=== PATIENT | male | born 1940 ===

== ENCOUNTER → 2019-08-02 | Outpatient (CLI) | payer OTHER ==
[~2019-08-02] VITALS: Ht 167.6 cm; Wt 112.9 kg
[~2019-08-02] MED LIST: ALLOPURINOL 10100 M3 PO; AMLODIPINE BESY10 MG PO; CARDURA8 MG PO; CARVEDILOL25 MG PO; FUROSEMIDE 20 M20 MG PO; GLIPIZIDE 10 MG10 MG PO; NEURONTIN300 MG PO; PRAVACHOL 20 MG20 M1 PO; TAMSULOSIN HCL0.4 MG PO; TYLENOL EXTRA500 MG PO; VALSARTAN320 MG PO; VICTOZA0.6 MG/0.1 SUBQ; VITAMIN D2000 UNIT PO; [UNRECOGNIZED DRUG - OTHER]
[2019-08-02 09:10] VITALS: BP 131/69
--- NOTE | 2019-08-02 09:35 | NUR ---
Pain Clinic Assessment: 1. History of Osteoarthritis: DENIES History of Rheumatoid Arthritis: DENIES 2. Height: 5 ft. 6 in. 167.6 cm. Weight: 249.0 lb. oz. 112.946 kg. Patient's BMI: 40.2 3. Vital Signs: BP: 131/69 Pulse: 73 Resp: 18 Temp: 02 Sat: 97 ECG Mon: 4. Pain Intensity: 5 5. Fall Risk: Dizziness: N Needs help standing or walking: N Fallen in the last 3 months: N Fall risk comments: 6. Patient on Blood Thinner: None 7. History of Hypertension: Y 8. Opioid Therapy greater than 6 weeks: N Opiate Contract Signed: 9. Risk Assessment Tool Provided: 10. Functional Assessment Tool: 11. Recreational Drug Use: Never Drug Type: Tobacco Use: Never Smoker Tobacco Type: Amount or Packs/day: How Many Years: Alcohol Use: No Frequency: Quant:
--- NOTE | 2019-08-23 08:14 | HPC ---
[facility] [address] [place] [address] PAIN MANAGEMENT CONSULTATION Name: ELIZABETH SANTIAGO Room #: REG ABBY Roe#: [id number] Admission: 08/02/19 Attend Phys: Kristin Santana MD Discharge: Date of : 42 Report #: [id number] THIS REPORT FOR: //name// CC: Irene Santana DATE OF SERVICE: 08/02/2019 CHIEF COMPLAINT: Low back pain and spinal stenosis with pain down in the back. HISTORY: The patient is a 79-year-old gentleman who has been referred to the Pain Clinic for evaluation. He has been referred to the Pain Clinic because of pain and discomfort, which has been problematic since about 2013. He has had some pain down in his lower back. Notes that the pain is worse when he is walking. Pain improves when he sits. Describes it as steady discomfort, burning and rates it as a 3/10 today, can rise to the level of 5/10. The patient has noted some signs of increased pain with walking. He is able to walk 2-3 blocks. After walking 2-3 blocks, he must lean forward. After leaning forward, he notices that the pain and discomfort in the low back area starts to dissipate relatively quickly. After sitting for about 5 minutes, he is able to then resume his activity. When he goes shopping, he holds onto the cart and leans forward. Again, he is limited in his ability to walk distances because of this pain and discomfort. He has had epidural steroid injections at [facility] lasted about 2014. ALLERGIES: IODINE causes edema and swelling. CURRENT MEDICATIONS: Pravastatin 10 mg at bedtime, amlodipine 10 mg daily, doxazosin 8 mg 2 tablets, carvedilol 25 mg b.i.d., gabapentin 300 mg t.i.d., Lotrisone cream to affected area b.i.d., valsartan 80 mg, allopurinol 100 mg, vitamin D 2000 units, Lasix 40 mg, Flomax 0.4 mg, Victoza, Flexeril 5 mg t.i.d., and glimepiride 4 mg. PAST MEDICAL HISTORY: Diabetes, hypertension, hyperlipidemia, chronic kidney disease, gout, arthritis, and rotator cuff disease. PAST SURGICAL HISTORY: Rotator cuff, penile implant, cataract surgery, left and right in August 2012, carpal tunnel release, left wrist, 09/2015, umbilical hernia repair 2016. C3/C6 laminectomy in 04/15/2019. REVIEW OF SYSTEMS: Questionnaire fatigue and weakness, wears glasses, hearing loss, shortness of breath, sexual difficulties, numbness and tingling and diabetes. LABORATORY DATA: MRI of the lumbar spine dated 03/10/2015: 1. Mild degenerative loss of disk height. Broad-based moderate sized stable [address] [address] PAIN MANAGEMENT CONSULTATION Name: ELIZABETH SANTIAGO [id number] Admission: 08/02/19 Attend Phys: Kristin Santana MD Discharge: Date of : 41 Report #: [id number] disk protrusion redemonstrated including central and inferiorly directed small extrusion. Ligamentum flavum thickening is also present. The lateral recesses are partially effaced and both foramen are mildly narrowed. 2. L3-L4 severe degenerative disk space narrowing has advanced. Large diffuse posterior disk bulge is also more advanced. Prominent dorsal epidural fat noted. Thecal sac midline AP diameter, 4 mm. 3. L2-L3 diffuse posterior disk bulge and prominent dorsal epidural fat redemonstrated. AP diameter approximately 9 mm. 4. L4-L5 moderate degenerative loss of disk height and small diffuse posterior disk bulge. Thecal sac AP diameter approximately 6 mm. Lateral recesses are partially effaced with ligamentum flavum. 5. L5-S1 moderate to severe degenerative loss of disk height with moderate size circumferential disk bulge. AP diameter is approximately 8-9 mm. PAIN CLINIC ASSESSMENT/PQRS: 1. History of osteoarthritis, has cervical osteoarthritic changes, status post cervical laminectomy. 2. History of rheumatoid arthritis. The patient is not being treated for rheumatoid arthritis. 3. Height 5 feet 6 inches, weight 249 pounds, BMI is 40. 4. Vital signs: Blood pressure 131/69, pulse 73, respiratory rate 18, and room air saturation 97%. 5. Pain intensity, 5/10. 6. Fall history: The patient has not fallen in the last 3 months. 7. Blood thinner. The patient is not on a blood thinning medication. 8. Hypertension. The patient is being treated for hypertension. 9. Opioids greater than 6 weeks. The patient is not on opioid regimen. 10. Risk assessment tool, low for opioid use. 11. Functional assessment tool. 12. Recreational drug use. The patient denies. 13. Tobacco: The patient has never smoked. 14. Alcohol. The patient denies use of alcoholic beverages. PHYSICAL EXAMINATION: GENERAL: The patient is a well-developed, well-nourished black male, appears his stated age. He is alert and oriented x 3. His affect is appropriate. Speech is fluent. HEENT: Normocephalic, atraumatic. Extraocular eye muscles intact. The patient has a well-healed scar in the anterior portion of his neck. He has some decreased range of motion in his neck. Upper extremity muscle strength is judged to be 5-/5 for the major muscle groups in the upper extremity. HEART: Regular rate. ABDOMEN: Protuberant. Bowel sounds present. LUNGS: Generally clear to auscultation. MUSCULOSKELETAL: The patient has pain and discomfort in the lower portion of his back with pain that radiates down into his legs with prolonged standing. [facility] [address] [place] [address] PAIN MANAGEMENT CONSULTATION Name: ELIZABETH SANTIAGO Room #: REG [facility]#: [id number] Admission: 08/02/19 Attend Phys: Kristin Santana MD Discharge: Date of : 41 Report #: [id number] The patient is without significant scoliosis, kyphosis or lordosis. Complains of pain that radiates down in the L4-L5 dermatomal distribution. IMPRESSION: Lumbar radiculopathy, L4-L5 dermatomal distribution with history of spinal stenosis. RECOMMENDATIONS: We discussed treatment options with the patient. Risks and benefits of an epidural steroid injection were discussed. Possible complications of the procedure, which could include but are not limited to infection, worsening pain, no improvement in pain, bleeding, nerve damage and the patient elects to proceed. PROCEDURE NOTE: The patient was taken to the procedure area. He was then assisted in getting on the examination table. His back was sterilely prepped with a Betadine solution at the L4-L5 area. Fluoroscopy using anterior, posterior as well as lateral viewing were implemented. A pillow had been placed under the abdomen to bolster to improve positioning. A 0.25% bupivacaine was infiltrated at the L4-L5 area. This area had been sterilely prepped with a Betadine solution and allowed to dry. A total of 80 mg Depo-Medrol, 40 mg triamcinolone and 2 mL of 0.25% bupivacaine was injected after the 18-gauge Tuohy was advanced into the area of the epidural space. Aspiration was negative. There was no CSF, heme or paresthesia. The patient receives 22 seconds of fluoroscopy time. The patient's pain decreased to zero at the time of discharge. He will follow up in the future as needed. We would like to thank you for letting us participate in his care. We hope he continues to improve. <ELECTRONICALLY SIGNED> By: Kristin Santana MD 08/23/19 0814 [id number] Kristin Santana MD /renée
== END | disposition home or self-care (01) ==
LOC: PAIN 06:54
DX: M54.16 Radiculopathy, lumbar region (principal); G89.29 Other chronic pain; I12.9 Hypertensive chronic kidney disease with stage 1 through stage 4 chronic kidney disease, or unspecified chronic kidney disease; E11.22 Type 2 diabetes mellitus with diabetic chronic kidney disease; N18.9 Chronic kidney disease, unspecified; E78.5 Hyperlipidemia, unspecified; M10.9 Gout, unspecified; M19.90 Unspecified osteoarthritis, unspecified site; Z98.890 Other specified postprocedural states; Z79.899 Other long term (current) drug therapy; Z91.041 Radiographic dye allergy status

== ENCOUNTER → 2019-09-04 | Outpatient (CLI) | payer OTHER ==
[~2019-09-04] VITALS: Ht 167.6 cm; Wt 114.2 kg
[2019-09-04 10:02] VITALS: BP 148/81
--- NOTE | 2019-09-04 10:26 | NUR ---
Pain Clinic Assessment: 1. History of Osteoarthritis: LEFT SHOULDER SPINE History of Rheumatoid Arthritis: DENIES 2. Height: 5 ft. 6 in. 167.6 cm. Weight: 251.8 lb. oz. 114.216 kg. Patient's BMI: 40.7 3. Vital Signs: BP: 148/81 Pulse: 76 Resp: 20 Temp: 02 Sat: 97 ECG Mon: 4. Pain Intensity: 8 5. Fall Risk: Dizziness: N Needs help standing or walking: N Fallen in the last 3 months: N Fall risk comments: 6. Patient on Blood Thinner: None 7. History of Hypertension: Y 8. Opioid Therapy greater than 6 weeks: N Opiate Contract Signed: 9. Risk Assessment Tool Provided: 10. Functional Assessment Tool: 11. Recreational Drug Use: Never Drug Type: Tobacco Use: Never Smoker Tobacco Type: Amount or Packs/day: How Many Years: Alcohol Use: No Frequency: Quant:
--- NOTE | 2019-09-24 21:49 | HPC ---
[facility] [address] [place] [address] PAIN MANAGEMENT CONSULTATION Name: ELIZABETH SANTIAGO Room #: REG LEOPOLDOMarlena Au#: [id number] Admission: 09/04/19 Attend Phys: Kristin Santana MD Discharge: Date of : 41 Report #: [id number] THIS REPORT FOR: //name// CC: Irene Santana DATE OF SERVICE: 09/04/2019 CHIEF COMPLAINT: Low back pain and pain in the tailbone. HISTORY: The patient is a 79-year-old gentleman who has been seen in the pain clinic because of lumbar radicular pain. He has undergone epidural steroid injection. He has had some pain since 2013. Notes that pain radiates down the lower portion of his back. Notes that the pain is problematic when he walks. Pain improves when he sits. He was walking 2-3 blocks. Notes at this point, he is having more pain and discomfort. Notes that if he leans forward, he has less pain and discomfort. After sitting for about 5 minutes, he notices pain improved. Notes leaning forward on a cart when walking and shopping is helpful. Epidural steroid injections at [facility] in the past have been beneficial. He has undergone epidural steroid injection and returns today indicating that his pain was helped. He still has pain, which he rates as an 8/10. Pain improves when he is sitting. CURRENT MEDICATIONS: Pravastatin 10 mg at bedtime, amlodipine 10 mg daily, doxazosin 8 mg, 2 tablets, carvedilol 25 mg b.i.d., gabapentin 300 mg t.i.d., Lotrisone cream to affected area b.i.d., valsartan 80 mg, allopurinol 100 mg, vitamin D 2000 units, Lasix 40 mg, Flomax 0.4 mg, Victoza, Flexeril 5 mg t.i.d., and glyburide 4 mg. PAIN CLINIC ASSESSMENT AND PQRS: 1. History of osteoarthritis involving his left shoulder as well as his spine. He is not being treated for rheumatoid arthritis. 2. Height 5 feet 6 inches, weight 251 pounds, BMI is 40.7. 3. Blood pressure 148/81, pulse 76, respiratory rate 20, room air saturation 97%. 4. Pain intensity 05/25. 5. Fall risk. The patient has not fallen. 6. Blood thinner. The patient is not on a blood thinner. 7. Hypertension. The patient is being treated for hypertension. 8. Opioids greater than 6 weeks. The patient receives medication from one source. 9. Risk assessment tool, low for opioid use. 10. Functional assessment tool. 11. Recreational drug use: The patient denies. 12. Tobacco: The patient has never smoked. 13. Alcohol: The patient denies frequent use of alcoholic beverages. [address] [address] PAIN MANAGEMENT CONSULTATION Name: ELIZABETH SANTIAGO Room #: REG [facility]#: [id number] Admission: 09/04/19 Attend Phys: Kristin Santana MD Discharge: Date of : 41 Report #: [id number] IMPRESSION: Lumbar radiculopathy with L4-L5 dermatomal distribution with history of spinal stenosis. RECOMMENDATIONS: We discussed treatment options with the patient. Risks and benefits of an epidural steroid injection were discussed. They include but are not limited to infection, worsening pain, no improvement in pain and the patient elects to proceed. PROCEDURE NOTE: The patient was taken to the procedure area. He was then assisted in getting on the examination table. His back was sterilely prepped with a Betadine solution at L4-L5. Fluoroscopy using anterior, posterior as well as lateral viewing were implemented. A pillow was placed under the abdomen to bolster and improve positioning. A 0.25% bupivacaine was infiltrated at the L4-L5 area to numb the area. This area had been sterilely prepped with Betadine. A 0.25% bupivacaine was injected. A 17-gauge Tuohy with loss of resistance technique was used to gain access to the epidural space. There was no CSF, heme or paresthesia. Total of 80 mg Depo-Medrol, 40 mg triamcinolone and 2 mL of 0.25% bupivacaine was injected. The patient's pain decreased to 0 at the time of discharge. He will follow up in the future as needed. The epidural was performed at the L5/S1 dermatomal interspace. Total of 11 seconds fluoroscopy time was used. The patient's pain decreased to 0. We would like to thank you for letting us participate in his care. We hope he continues to improve. <ELECTRONICALLY SIGNED> By: Kristin Santana MD 09/24/19 2149 [id number] Kristin Santana MD /renée
== END | disposition home or self-care (01) ==
LOC: PAIN 07:03
DX: M54.16 Radiculopathy, lumbar region (principal); G89.29 Other chronic pain; I12.9 Hypertensive chronic kidney disease with stage 1 through stage 4 chronic kidney disease, or unspecified chronic kidney disease; E11.22 Type 2 diabetes mellitus with diabetic chronic kidney disease; N18.9 Chronic kidney disease, unspecified; E78.5 Hyperlipidemia, unspecified; Z98.890 Other specified postprocedural states; Z79.899 Other long term (current) drug therapy; Z91.041 Radiographic dye allergy status

== ENCOUNTER → 2019-12-25 | Outpatient (CLI) | payer OTHER ==
[~2019-12-25] VITALS: Ht 167.6 cm; Wt 117.3 kg
--- NOTE | ~2019-12-25 | HPC ---
[facility] [place] [address] PAIN MANAGEMENT CONSULTATION Name: ELIZABETH SANTIAGO Room #: REG ABBY MoranOlesyaAjay.#: [id number] Admission: 12/25/19 Attend Phys: Kristin Santana MD Discharge: Date of : 41 Report #: [id number] THIS REPORT FOR: cc: Irene Zambrano MD,Irene Santana,Kristin Burger MD ~ CC: Irene Santana DATE OF SERVICE: 12/25/2019 CHIEF COMPLAINT: Return of pain down into both legs. HISTORY: The patient is a 79-year-old gentleman who has been seen in the pain clinic because of lumbar radiculopathy. He has undergone epidural steroid injections in the past. He did glean benefit from that injection. He returns today indicating that he is having some recurrence of pain in the low back area that radiates down into both legs and into his buttocks and down into his calf. Notes that the left and the right leg are involved. Describes it as a constant, aching discomfort intensifies with walking, improves when he sits down and rates it as an 8/10. Because of the improvement he received after the last injection in 08/2019, he has returned for an injection today. ALLERGIES: IODINE ____ use does not cause problems, it is IV IODINE. MEDICATIONS: Finerenone experimental nonsteroidal for diabetics with kidney disease. Tylenol Extra Strength b.i.d., vitamin D 2000 units, liraglutide (Victoza) subcutaneous daily, valsartan 320 mg, Flomax 0.4 mg, Pravachol 20 mg, Glucotrol 10 mg, gabapentin 300 mg t.i.d., Lasix 20 mg, Cardura 8 mg, Coreg 25 mg, amlodipine 10 mg, allopurinol 100 mg b.i.d. PAIN CLINIC ASSESSMENT AND PQRS: 1. The patient has a history of osteoarthritis involving his left shoulder as well as in his spine. He is not being treated for rheumatoid arthritis. 2. Height 5 feet 6 inches, weight 258 pounds, BMI is 41. 3. Vital signs: Blood pressure 145/82, pulse 82, respiratory rate 16, room air saturation 95%. 4. Pain intensity 05/25. 5. Fall history: The patient fell in the parking lot. He states that he was not watching where he placed his feet. 6. Blood thinner. The patient is not on a blood thinning medication. 7. Hypertension. The patient is being treated for hypertension. 8. Opioids greater than 6 weeks. The patient is not on a regular opioid regimen. 9. Risks for opioids, low. 10. Functional assessment [place] [address] PAIN MANAGEMENT CONSULTATION Name: ELIZABETH SANTIAGO Room #: REG ABBY Au#: [id number] Admission: 12/25/19 Attend Phys: Kristin Santana MD Discharge: Date of : 41 Report #: [id number] 11. Recreational drug use: The patient denies. 12. Tobacco: The patient has never smoked. 13. Alcohol. The patient denies frequent use of alcoholic beverages. PHYSICAL EXAMINATION: GENERAL: The patient is a well-developed, well-nourished black male. Appears his stated age. He is alert and oriented x 3. His affect is appropriate. Speech is fluent. HEENT: Normocephalic, atraumatic. Extraocular eye muscles intact. NECK: Without JVD. HEART: Regular rate. ABDOMEN: Protuberant. MUSCULOSKELETAL: The patient without significant scoliosis, kyphosis or lordosis. The patient is having pain that is radiating down the lower portion of his back and the left and right buttocks down the posterior area of L5-S1 with numbness, tingling down into the calf area and down into his feet. IMPRESSION: 1. Lumbar radiculopathy, L4-L5 dermatomal distribution in the past with complaints of L4-L5 dermatomal distribution today in his feet. 2. Hypertension. 3. Diabetes. 4. Gout. RECOMMENDATIONS: We discussed treatment options with the patient. Risks and benefits of an epidural steroid injection were discussed. Possible complications of the procedure, which could include but are not limited to infection, worsening of pain, no improvement in pain, nerve damage were discussed. The patient elects to proceed. PROCEDURE NOTE: The patient was taken to the procedure area. He was then assisted in getting on the examination table. A pillow was placed under his abdomen to bolster and improve positioning. Fluoroscopy using anterior, posterior as well as lateral viewing were implemented. Betadine solution was used to cleanse the low back area. It was allowed to dry. It was immediately washed off after the procedure. A 0.25% bupivacaine was infiltrated at the L5/S1 interspace. A 17-gauge Tuohy with loss of resistance technique at the L5-S1 area was undertaken. There was no CSF, heme or paresthesia. Total of 80 mg of Depo-Medrol, 40 mg of triamcinolone and 2 mL of 0.25% bupivacaine was injected. The patient's pain decreased to 0 at the time of discharge. There were no complications. A 22 seconds fluoroscopy time was used. We would like to thank you for letting us participate in his care. The patient [address] [address] PAIN MANAGEMENT CONSULTATION Name: ELIZABETH SANTIAGO Room #: REG [facility] Roe#: [id number] Admission: 12/25/19 Attend Phys: Kristin Santana MD Discharge: Date of : 42 Report #: [id number] will continue to monitor his blood sugars and call if he has any concerns. He will call his primary should he have problems with his blood sugar as well. By: [id number] Kristin Santana MD /CONCHITA
[2019-12-25 10:13] VITALS: BP 145/82
--- NOTE | 2019-12-25 10:32 | NUR ---
Pain Clinic Assessment: 1. History of Osteoarthritis: LEFT SHOULDER SPINE History of Rheumatoid Arthritis: DENIES 2. Height: 5 ft. 6 in. 167.6 cm. Weight: 258.6 lb. oz. 117.300 kg. Patient's BMI: 41.8 3. Vital Signs: BP: 145/82 Pulse: 82 Resp: 16 Temp: 02 Sat: 98 ECG Mon: 4. Pain Intensity: 8 5. Fall Risk: Dizziness: Y Needs help standing or walking: N Fallen in the last 3 months: N Fall risk comments: 6. Patient on Blood Thinner: None 7. History of Hypertension: Y 8. Opioid Therapy greater than 6 weeks: N Opiate Contract Signed: 9. Risk Assessment Tool Provided: LOW RISK 10. Functional Assessment Tool: 11. Recreational Drug Use: Never Drug Type: Tobacco Use: Never Smoker Tobacco Type: Amount or Packs/day: How Many Years: Alcohol Use: No Frequency: Quant:
== END | disposition home or self-care (01) ==
LOC: PAIN 06:40
DX: M54.16 Radiculopathy, lumbar region (principal); G89.29 Other chronic pain; Z98.890 Other specified postprocedural states; Z91.041 Radiographic dye allergy status; Z79.899 Other long term (current) drug therapy

== ENCOUNTER → 2020-02-12 | Outpatient (CLI) | payer OTHER ==
[~2020-02-12] VITALS: Ht 167.6 cm; Wt 117.1 kg
[~2020-02-12] MED LIST changes: +PERCOCET 5-3251 EACH PO
[2020-02-12 08:27] VITALS: BP 165/89
--- NOTE | 2020-02-12 08:40 | NUR ---
Pain Clinic Assessment: 1. History of Osteoarthritis: LEFT SHOULDER SPINE History of Rheumatoid Arthritis: DENIES 2. Height: 5 ft. 6 in. 167.6 cm. Weight: 258.2 lb. oz. 117.119 kg. Patient's BMI: 41.7 3. Vital Signs: BP: 165/89 Pulse: 86 Resp: 20 Temp: 02 Sat: 98 ECG Mon: 4. Pain Intensity: 8 5. Fall Risk: Dizziness: N Needs help standing or walking: N Fallen in the last 3 months: N Fall risk comments: 6. Patient on Blood Thinner: None 7. History of Hypertension: Y 8. Opioid Therapy greater than 6 weeks: N Opiate Contract Signed: 9. Risk Assessment Tool Provided: LOW RISK 10. Functional Assessment Tool: 11. Recreational Drug Use: Never Drug Type: Tobacco Use: Never Smoker Tobacco Type: Amount or Packs/day: How Many Years: Alcohol Use: No Frequency: Quant:
--- NOTE | 2020-02-19 07:58 | HPC ---
[facility] [place] [address] PAIN MANAGEMENT CONSULTATION Name: ELIZABETH SANTIAGO Room #: REG ABBY WrightOlesya#: [id number] Admission: 02/12/20 Attend Phys: Kristin Santana MD Discharge: Date of : 42 Report #: [id number] THIS REPORT FOR: cc: Irene Zambrano MD,Irene Santana,Kristin Burger MD ~ CC: Irene Santana DATE OF SERVICE: 02/12/2020 CHIEF COMPLAINT: Continued pain in the legs. HISTORY: The patient is a 79-year-old gentleman who has been followed in the Pain Clinic. He has undergone epidural steroid injections and found them beneficial. He returns today because of increased pain in his calves, and down into his buttocks bilaterally. He has noticed a return of pain and discomfort. He is unable to walk very far before onset of his pain and limitations and his ability to walk. He rates the pain as an 8/10. Pain is exacerbated with walking. Improves when he sits down. He has a history of spinal stenosis in the lower portion of his back. ALLERGIES: IODINE on skin does not cause a problem, but IODINE, IV does. CURRENT MEDICATIONS: Tylenol Extra Strength b.i.d., vitamin D 2000 units, liraglutide, Victoza subcutaneous daily, valsartan 320 mg, Flomax 0.4 mg, Pravachol 20 mg, Glucotrol 10 mg, gabapentin 300 mg t.i.d., Lasix 20 mg, Cardura 8 mg, Coreg 25 mg, amlodipine 10 mg, allopurinol 100 mg b.i.d. PAIN CLINIC ASSESSMENT AND PQRS: 1. The patient has a history of osteoarthritis involving his left shoulder as well as in his lower spine. He is not being treated for rheumatoid arthritis. 2. Height 5 feet 6 inches, weight 258 pounds, BMI is 41.7. 3. Vital Signs: Blood pressure 165/89, pulse 86, respiratory rate 20, room air saturation 98%. 4. Pain intensity 05/25. 5. Fall history: The patient has not fallen in the last 3 months. 6. Blood thinner. The patient is not on a blood thinning medication. 7. Hypertension. The patient is being treated for hypertension. 8. Opioids greater than 6 weeks. The patient receives medication from one source. 9. Risk assessment tool, low for opioid use. 10. Functional assessment tool . 11. Recreational drug use. The patient denies. 12. Tobacco: The patient denies use of tobacco. 13. Alcohol. The patient denies frequent use of alcoholic beverages. [address] [address] PAIN MANAGEMENT CONSULTATION Name: STAN SANTIAGOTER Room #: REG Marlena Au#: [id number] Admission: 02/12/20 Attend Phys: Kristin Santana MD Discharge: Date of : 42 Report #: [id number] PHYSICAL EXAMINATION: GENERAL: The patient is a well-developed, well-nourished, somewhat obese black male, appears his stated age. He is alert and oriented x 3. His affect is appropriate. Speech is fluent. HEENT: Normocephalic, atraumatic. Extraocular eye muscles intact. Sclerae nonicteric. Mucous membranes are moist. NECK: Without adenopathy or JVD. HEART: Regular rate. ABDOMEN: Protuberant. MUSCULOSKELETAL: The patient without significant scoliosis, kyphosis or lordosis. The patient has pain that is radiating down the posterior portion of his legs and the left than the right side in the L5-S1 dermatomal distribution. Tingling in his calves as well as down into his feet. IMPRESSION: 1. Lumbar radiculopathy, L4-L5 and L5-S1 dermatomal distribution. 2. Hypertension. 3. Diabetes. 4. Gout. RECOMMENDATIONS: We discussed treatment options with the patient. At this juncture, he continues to find that his pain is quite problematic. He states that he is barely able to make it. He is having pain in the thigh and buttocks areas. He is limited in his ability to walk any distance. At this juncture, we have discussed the options. They include epidural steroid injections or a conservative approach with opioids. At this point, we will try Percocet 5 mg 1 p.o. b.i.d. and note their efficacy. We explained to the patient that use of steroids can decrease the patient's immune response. It may be suppressed. The patient is aware that COVID-19 is quite problematic. He has pain, which is quite problematic. At this juncture, we will try the most conservative approach. He will try the Percocet. If his pain continues to be problematic, we will consider another epidural steroid injection. He is at high risk for COVID-19 because of his comorbidities, which include diabetes, elevated age, chronic pain. We would like to thank you for letting us participate in his care. We hope he continues to improve. <ELECTRONICALLY SIGNED> By: Kristin Santana MD 02/19/20 [id number] Kristin Santana MD /PMT
== END ==
LOC: PAIN 01-22 10:04
DX: M79.604 Pain in right leg (principal); M79.605 Pain in left leg; M54.16 Radiculopathy, lumbar region; I10 Essential (primary) hypertension; E11.9 Type 2 diabetes mellitus without complications; M10.9 Gout, unspecified; Z88.8 Allergy status to other drugs, medicaments and biological substances; Z79.899 Other long term (current) drug therapy

== ENCOUNTER → 2020-03-11 | Outpatient (CLI) | payer OTHER ==
[~2020-03-11] VITALS: Ht 167.6 cm; Wt 114.9 kg
[~2020-03-11] MED LIST changes: +TIZANIDINE HCL4 M1 PO; +TRAMADOL 50 MG50 MG PO
--- NOTE | ~2020-03-11 | HPC ---
[facility] [address] [place] [address] PAIN MANAGEMENT CONSULTATION Name: ELIZABETH SANTIAGO Room #: REG ABBY WrightOlesya#: [id number] Admission: 03/11/20 Attend Phys: Kristin Santana MD Discharge: Date of : 42 Report #: [id number] THIS REPORT FOR: cc: Ameya Zambrano MD,Kristin Lehman MD, MD ~ CC: AMEYA Santana DATE OF SERVICE: 03/11/2020 CHIEF COMPLAINT: Continued low back pain. HISTORY: The patient is a very pleasant 79-year-old gentleman who has been seen in the Pain Clinic because of lumbar radiculopathy. He has undergone epidural steroid injections and found them beneficial. He was provided oxycodone to help with his pain. He found that this is somewhat helpful. He has returned today with the hopes of undergoing another epidural steroid injection. He continues to have pain when cramping in his legs. It involves both sides. He is limited in his ability to engage in activities. He is moving very slowly. Prolonged standing exacerbates his discomfort. He notes that the pain improves when he sits down. He has returned for an injection. He is aware that COVID-19 is problematic. He is staying at home. He is following the guidelines proposed by the CDC and lessen the chance of infection. ALLERGIES: IODINE on the skin does not cause problems. IODINE, IV does. CURRENT MEDICATIONS: Tylenol Extra Strength b.i.d., vitamin D 2000 units, liraglutide, Victoza subq daily, valsartan 320 mg, Flomax 0.4 mg, Pravachol 20 mg, Glucotrol 10 mg, gabapentin 300 mg t.i.d., Lasix 20 mg, Cardura 8 mg, Coreg 25 mg, amlodipine 10 mg, and allopurinol 100 mg b.i.d. PAIN CLINIC ASSESSMENT/PQRS: 1. The patient has a history of osteoarthritis involving his left shoulder as well as his lower spine. He is not being treated for rheumatoid arthritis. 2. Height 5 feet 6 inches, weight 253 pounds, BMI is 40. 3. Vital signs: Blood pressure 155/80, pulse 82, respiratory rate 18, and room air saturation 96%. 4. Pain intensity, 04/24. 5. Fall history: The patient has not fallen. 6. Blood thinner. The patient is not on a blood thinning medication. 7. Hypertension. The patient is being treated for hypertension. 8. Opioids greater than 6 weeks. The patient is low for opioid use. 9. Risk assessment tool, low risk. 10. Functional assessment tool, . [address] [address] PAIN MANAGEMENT CONSULTATION Name: ELIZABETH SANTIAGO [facility] [id number] Admission: 03/11/20 Attend Phys: Kristin Santana MD Discharge: Date of : 42 Report #: [id number] 11. Recreational drug use. The patient denies. 12. Tobacco: The patient has never smoked. 13. Alcohol. The patient denies frequent use of alcoholic beverages. PHYSICAL EXAMINATION: GENERAL: The patient is a well-developed, well-nourished black male, appears his stated age. He is somewhat obese. His affect is appropriate. Speech is fluent. HEENT: Normocephalic, atraumatic. Extraocular eye muscles intact. Sclerae nonicteric. Mucous membranes are moist. NECK: Without adenopathy. HEART: Regular rate. ABDOMEN: Protuberant. MUSCULOSKELETAL: Without significant scoliosis, kyphosis or lordosis. The patient has pain that is radiating down the posterior portion of his back and into his legs, left and the right side in the L5-S1 dermatomal distribution. The patient notes some tingling in his calf as well with discomfort down into his feet. IMPRESSION: 1. Lumbar radiculopathy, L4-L5 and L5-S1 dermatomal distribution. 2. Hypertension. 3. Diabetes. 4. Gout. RECOMMENDATIONS: We discussed treatment options with the patient. Risks and benefits of an epidural steroid injection were again discussed. Possible complications of the procedure include, but are not limited to infection, worsening of pain, no improvement in pain, nerve damage, bleeding, spinal headache. We also discussed the problems with COVID-19. Because of the epidemic, a number of people have ____ diet. The patient states that he is following the CDC guidelines. His pain is very severe and he is staying at home. He has a number of comorbidities that would put him at a high risk category. He is aware of this and elects to proceed with an epidural steroid injection. The patient will also continue with oxycodone 5/325, a total of 14 tablets have been provided. We will see whether or not the patient is able to tolerate this medication. PROCEDURE NOTE: The patient was taken to the procedure area. He was then assisted in getting on the examination table. His back was sterilely prepped with a Betadine solution. A 0.25% bupivacaine was infiltrated at the L5-S1 area. Fluoroscopy using anterior, posterior viewing was implemented. The patient's back had been sterilely cleansed with an iodine solution. This was promptly washed off after the procedure. A skin wheal at the L5-S1 area was provided. A 0.25% bupivacaine was infiltrated. A 17-gauge Tuohy with loss of resistance technique was then used to gain access to the epidural space using a [facility] [employer] [address] [place] [address] PAIN MANAGEMENT CONSULTATION Name: JACKELIZABETH Room #: REG [facility] Roe#: [id number] Admission: 03/11/20 Attend Phys: Kristin Santana MD Discharge: Date of : 42 Report #: [id number] right paramedian approach. A total of 80 mg Depo-Medrol, 40 mg triamcinolone and 2 mL of 0.25% bupivacaine was injected. The patient will monitor his blood sugars. He will call us if he has any concerns. A total of 14 seconds fluoroscopy time was used. We would like to thank you for letting us participate in his care. We hope he continues to improve. By: 1110 [id number] Kristin Santana MD /nt
[2020-03-11 08:27] VITALS: BP 155/80
--- NOTE | 2020-03-11 08:39 | NUR ---
Pain Clinic Assessment: 1. History of Osteoarthritis: LEFT SHOULDER SPINE History of Rheumatoid Arthritis: DENIES 2. Height: 5 ft. 6 in. 167.6 cm. Weight: 253.2 lb. oz. 114.851 kg. Patient's BMI: 40.9 3. Vital Signs: BP: 155/80 Pulse: 82 Resp: 18 Temp: 02 Sat: 96 ECG Mon: 4. Pain Intensity: 7 5. Fall Risk: Dizziness: N Needs help standing or walking: N Fallen in the last 3 months: N Fall risk comments: 6. Patient on Blood Thinner: None 7. History of Hypertension: Y 8. Opioid Therapy greater than 6 weeks: N Opiate Contract Signed: 9. Risk Assessment Tool Provided: LOW RISK 10. Functional Assessment Tool: 11. Recreational Drug Use: Never Drug Type: Tobacco Use: Never Smoker Tobacco Type: Amount or Packs/day: How Many Years: Alcohol Use: No Frequency: Quant:
== END | disposition home or self-care (01) ==
LOC: PAIN 06:45
DX: M54.16 Radiculopathy, lumbar region (principal); G89.29 Other chronic pain; I10 Essential (primary) hypertension; E11.9 Type 2 diabetes mellitus without complications; M10.9 Gout, unspecified; Z98.890 Other specified postprocedural states; Z79.899 Other long term (current) drug therapy; Z91.041 Radiographic dye allergy status